=== PATIENT | female | born 1980 | race Hispanic/Latino ===

== ENCOUNTER 2017-02-19 18:41 | Emergency (ER) | payer SELFPAY ==
[2017-02-19 20:02] VITALS: BP 131/83
== END 2017-02-19 23:40 | disposition left against medical advice (07) ==
LOC: ED 18:41
DX: M54.9 Dorsalgia, unspecified (principal); Z53.21 Procedure and treatment not carried out due to patient leaving prior to being seen by health care provider

== ENCOUNTER 2021-01-07 12:45 | Emergency (ER) | payer SELFPAY ==
[2021-01-07 12:55] VITALS: BP 143/97
== END 2021-01-07 13:00 | disposition left against medical advice (07) ==
LOC: ED 12:45
DX: M25.572 Pain in left ankle and joints of left foot (principal); Z53.21 Procedure and treatment not carried out due to patient leaving prior to being seen by health care provider